=== PATIENT | female | born 1960 | race Caucasian/White ===

== ENCOUNTER 2019-04-16 16:54 | Emergency (ER) | payer OTHER ==
[~2019-04-16] VITALS: Ht 162.6 cm; Wt 61.2 kg
[~2019-04-16 16:54] MED LIST: ALLEGRA-D 24 H1 EACH PO; CALCIUM 600 +1 EAC1 PO; FISH OIL 1,001000 M2 PO; FLEXERIL PO; HYDROCODON-ACE1 EAC7; NOHOMEMEDICATIONS; ZYRTEC10 MG PO; [UNRECOGNIZED DRUG - OTHER]
[2019-04-16 18:27] LABS: BASOPHILS 0.9 % (0.0-2.0); EOSINOPHILS 0.6 % (0.0-3.0); HEMATOCRIT 40.4 % (37.0-47.0); HEMOGLOBIN 13.8 gm/dL (12.0-15.0); LYMPHOCYTES 19.1 % (24.0-44.0); MCH 31.5 pg (26.0-34.0); MCHC 34.2 g/dL (28.0-37.0); MCV 92.3 fL (80.0-100.0); MONOCYTES 7.1 % (1.0-8.0); PLATELET COUNT 232 thou/uL (150-400); POLYS 72.3 % (36.0-66.0); RBC 4.38 mil/uL (4.20-5.00); WBC 8.2 thou/uL (4.0-11.0)
[2019-04-16 18:33] LABS: URINE BILIRUBIN NEGATIVE (Negative); URINE BLOOD NEGATIVE (Negative); URINE CLARITY CLEAR; URINE COLOR YELLOW; URINE GLUCOSE-RANDOM* NEGATIVE (Negative); URINE KETONES NEGATIVE (Negative); URINE LEUKOCYTES-REFLEX NEGATIVE (Negative); URINE NITRITE-REFLEX NEGATIVE (Negative); URINE PROTEIN (DIPSTICK) NEGATIVE (Negative); URINE SPECIFIC GRAVITY <= 1.005 (1.005-1.035); URINE UROBILINOGEN 0.2 E.U./dl (0.2-1.0)
[2019-04-16 18:34] LABS: ANION GAP 8 mmol/L (7-16); BUN 10 mg/dL (7-18); CALCIUM 9.6 mg/dL (8.5-10.1); CHLORIDE 105 mmol/L (98-107); CO2 28 mmol/L (21-32); GLUCOSE 115 mg/dL (74-106); POTASSIUM 4.2 mmol/L (3.5-5.1); SODIUM 141 mmol/L (136-145)
[2019-04-16 18:40] LABS: ALBUMIN 3.7 g/dL (3.4-5.0); LIPASE 109 U/L (73-393); SGOT 17 U/L (15-37); SGPT 20 U/L (30-65); TOTAL BILIRUBIN < 0.1 mg/dL (<0.1-1.0); TOTAL PROTEIN 7.6 g/dL (6.4-8.2)
[2019-04-16] MEDS ORDERED: EC-NAPROSYN500 M1 PO (20:19)
[2019-04-16 20:38] VITALS: BP 127/82
== END 2019-04-16 20:39 | disposition home or self-care (01) ==
LOC: ER 16:54
PROVIDERS: Emergency Medicine
DX: K63.89 Other specified diseases of intestine (principal); Z87.891 Personal history of nicotine dependence; Z98.890 Other specified postprocedural states